=== PATIENT | female | born 1990 ===

== ENCOUNTER 2017-05-21 14:50 | Emergency (ER) | payer OTHER ==
[2017-05-21 14:56] VITALS: O2SAT 98
[2017-05-21] MEDS ORDERED: Lactated Ringer's 1,000 ML IV STA (15:18)
--- NOTE | 2017-05-21 15:23 | ED PDOC ---
HPI:Nausea, Vomiting, Diarrhea Time Seen by Provider: 05/21/17 15:09 Chief Complaint (Nursing): GI Problem History Per: Patient History/Exam Limitations: no limitations Onset/Duration Of Symptoms: Hrs, Persistent Current Symptoms Are (Timing): Better Have you had recent travel within the past 21 days to any of the following countries: [place], [place], [place] or [place]?: No Pain Scale Rating Of: 2 Location Of Discomfort (Image): 1 - LLQ mild pain Quality Of Discomfort: "Pain" Associated Symptoms: Vomiting, Diarrhea Exacerbating Factors: Walking Alleviating Factors: Rest Last Bowel Movement: Today Additional Complaint(s): 26 y/o F with PMHx of anxiety on Zoloft daily, present to ED for vomiting since this morning 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 Patient states around 8am she had 1 diarrhea NBNM and right after she felt her face was hot and had 1 episode of yellowish vomiting with food particles on it. Since then she has had 4 more yellowish vomits NBNB with the last being 45 min ago. She feels worse when she walks but denies nausea or heartburn. Patient also c/o mild LLQ abd pain since this morning with no radiation, 2/10, constant. Denies dysuria, denies alcohol intake in the past 2 weeks or drug use. Patient is taking Zoloft as prescribed by . LMP about 1 month ago but they are irregular. Patient has and IUD and is sexually active. Denies vaginal bleeding at this time. Last Menstral Period: about 1 month ago. Past Medical History Vital Signs: Last Vital Signs Temp 98.5 F 05/21/17 14:53 Pulse 84 05/21/17 14:53 Resp 18 05/21/17 14:53 BP 109/58 L 05/21/17 14:53 Pulse Ox 98 05/21/17 14:53 - Medical History PMH: Anxiety - Surgical History Surgical History: No Surg Hx - Family History Family History: States: No Known Family Hx - Living Arrangements Living Arrangements: With Family - Social History Current smoker - smoking cessation education provided: No - Home Medications Home Medications: Ambulatory Orders Medication Instructions Recorded Dicyclomine [Bentyl] 20 mg PO BID PRN #30 tab 05/21/17 Ondansetron ODT [Zofran ODT] 1 odt PO Q6 PRN #30 odt 05/21/17 - Allergies Allergies/Adverse Reactions: Allergies Allergy/AdvReac Type Severity Reaction Status Date / Time No Known Allergies Allergy Verified 05/21/17 14:53 Review of Systems ROS Statement: Except As Marked, All Systems Reviewed And Found Negative Constitutional: Negative for: Fever Eyes: Negative for: Vision Change Cardiovascular: Negative for: Chest Pain, Palpitations, Light Headedness Respiratory: Negative for: Cough, Shortness of Breath, Wheezing Gastrointestinal: Positive for: Vomiting, Abdominal Pain, Diarrhea. Negative for: Nausea Genitourinary Female: Negative for: Dysuria, Frequency Skin: Negative for: Lesions Physical Exam - Reviewed Nursing Documentation Reviewed: Yes - Physical Exam Appears: Positive for: Non-toxic, No Acute Distress Skin: Positive for: Normal Color Eye Exam: Positive for: EOMI, PERRL Cardiovascular/Chest: Positive for: Regular Rate, Rhythm. Negative for: Murmur Respiratory: Positive for: Normal Breath Sounds. Negative for: Crackles, Wheezing Gastrointestinal/Abdominal: Positive for: Soft, Tenderness (mild with deep palpation of LLQ). Negative for: Distended, Guarding Back: Negative for: L CVA Tenderness, R CVA Tenderness Extremity: Positive for: Normal ROM Neurologic/Psych: Positive for: Alert, Oriented - Laboratory Results Result Diagrams: 05/21/17 16:35 05/21/17 16:35 - ECG O2 Sat by Pulse Oximetry: 98 - Progress ED Course And Treament: Patient received zofran, IV fluids, toradol IV and tylenol PO. After treatment and resolution of the nausea and headache patient was able to tolerate food at the ED and no new episodes of vomiting were reported. Lab work reviewed and there is no electrolyte imbalance or signs of acute infection. Medical Decision Making Medical Decision Makin26 y/o F with PMHx of anxiety presents for vomiting and abd pain -Rule out vs Gastroenteritis vs UTI test Electrolytes and CBC CMP, Lipase IV fluids and Zofran IV UA Disposition - Clinical Impression Clinical Impression: Vomiting - Patient ED Disposition Is Patient to be Admitted: No - Disposition Disposition: Routine/Home Disposition Time: 18:55 Condition: IMPROVED Prescriptions: Dicyclomine [Bentyl] 20 mg PO BID PRN #30 tab PRN Reason: abdominal pain Ondansetron ODT [Zofran ODT] 1 odt PO Q6 PRN #30 odt PRN Reason: Nausea/Vomiting Instructions: Acute Nausea and Vomiting (ED) Print Language: LEBANESE - POA Present On Arrival: None
[2017-05-21] MEDS ORDERED: Dextrose 5%/Lactated Ringer's 1,000 ML IV SCH (15:45)
[2017-05-21 16:38] LABS: HEMATOCRIT 41.9 % (34.0-47.0); LYMPH # 0.2 K/uL (1.0-4.3); LYMPH % 4.2 % (20.0-40.0); MEAN CORPUSCULAR HEMOGLOBIN 27.1 pg (27.0-31.0); MEAN CORPUSCULAR HGB CONC 32.6 g/dL (33.0-37.0); MEAN PLATELET VOLUME 7.8 fl (7.2-11.7); MONO # 0.2 K/uL (0.0-0.8); NEUT # 5.2 K/uL (1.8-7.0); NEUT % 91.8 % (50.0-75.0); PLATELET COUNT 209 K/uL (130-400); RED CELL DISTRIBUTION WIDTH 14.1 % (11.5-14.5); WHITE BLOOD COUNT 5.6 K/uL (4.8-10.8)
[2017-05-21 16:47] LABS: ALB/GLOB RATIO 1.5 (1.0-2.1); ALKALINE PHOSPHATASE 43 U/L (38-126); ALT/SGPT 34 U/L (9-52); AST/SGOT 21 U/L (14-36); BILIRUBIN,TOTAL 0.6 mg/dl (0.2-1.3); BLOOD UREA NITROGEN 14 mg/dl (7-17); CALCIUM 9.2 mg/dL (8.4-10.2); CARBON DIOXIDE 23 mmol/L (22-30); CHLORIDE 104 mmol/L (98-107); GFR AFRICAN-AMERICAN > 60; GLUCOSE,RANDOM 85 mg/dL (65-105); LIPASE 40 U/L (23-300); MAGNESIUM 1.8 MG/DL (1.6-2.3); PHOSPHOROUS 3.2 mg/dl (2.5-4.5); POTASSIUM 4.1 MMOL/L (3.6-5.0); SODIUM 137 mmol/l (132-148); TOTAL PROTEIN 7.4 G/DL (6.3-8.2)
[2017-05-21 17:53] LABS: NEUTROPHIL 93 % (42-75); TOTAL CELLS COUNTED 100
[2017-05-21 19:06] VITALS: BP 112/64; PULSE 82; RESP 16; TEMP 98.2
== END 2017-05-21 19:06 | disposition home or self-care (01) ==
LOC: H.ER 14:50
DX: R11.10 Vomiting, unspecified (principal); F41.9 Anxiety disorder, unspecified